=== PATIENT | female | born 1990 | race Caucasian/White ===

== ENCOUNTER 2019-02-20 05:46 | Emergency (ER) | payer MEDICAID ==
[~2019-02-20] VITALS: Ht 165.1 cm; Wt 61.4 kg
[2019-02-20] MEDS ORDERED: PB/HYOSCY/ATR/SCOP/LIDO/MAALOX 55 ML BOTTLE PO ONE (06:45)
[2019-02-20 08:31] VITALS: BP 117/78
== END 2019-02-20 08:42 | disposition home or self-care (01) ==
LOC: EMS 05:46
DX: J02.9 Acute pharyngitis, unspecified (principal); J39.2 Other diseases of pharynx
CPT/HCPCS: 70360